=== PATIENT | male | born 1955 | race Two or more races ===

== ENCOUNTER 2019-10-28 08:57 | Day surgery (SDC) | payer OTHER | END 2019-10-28 13:10 | disposition home or self-care (01) | LOC: AMB-ENDOS 08:57 → EDSEX 08:57 → AMB-ENDOS 13:10 | PROVIDERS: ATTEND Surgery | DX: K57.30 Diverticulosis of large intestine without perforation or abscess without bleeding (principal); Z12.11 Encounter for screening for malignant neoplasm of colon ==